=== PATIENT | female | born 2005 | race Caucasian/White ===

== ENCOUNTER 2024-10-25 14:52 | Observation (INO) ==
[2024-10-25 15:32] LABS: Basophils # (auto) 0.03 K/uL (0.00-0.20); Basophils % (auto) 0.3 %; Eosinophils # (auto) 0.06 K/uL (0.00-0.50); Eosinophils % (auto) 0.6 %; Hematocrit (blood only) 38.2 % (37.0-47.0); Hemoglobin 13.5 g/dl (12.0-16.0); Immature Granulocytes # (auto) 0.04 K/uL (0.01-0.20); Immature Granulocytes % (auto) 0.4 %; Lymphocytes # (auto) 1.58 K/uL (1.20-3.40); Mean Corpuscular Hemoglobin 31.2 pg (25.0-34.0); Mean Corpuscular Hgb Conc 35.3 g/dL (32.0-36.0); Mean Corpuscular Volume 88.2 fL (80.0-100.0); Mean Platelet Volume 9.9 fL (9.4-12.4); Monocytes # (auto) 0.59 K/uL (0.11-0.59); Monocytes % (auto) 5.6 %; Neutrophils # (auto) 8.23 K/uL (1.40-6.50); Neutrophils % (auto) 78.1 %; Platelet Count 180 K/uL (130-400); RDW Coefficient of Variation 12.1 % (11.5-14.5); RDW Standard Deviation 38.7 fL (36.4-46.3); Red Blood Count 4.33 M/uL (4.20-5.40); White Blood Count 10.53 K/ul (4.8-10.8)
[2024-10-25 15:46] LABS: Pregnancy Test, Serum Negative (Negative)
[2024-10-25 15:52] LABS: Albumin Globulin Ratio 1.6 (0.9-2); Albumin Level 4.4 gm/dl (3.4-5.0); BUN Creatinine Ratio 20.9 (10-20); Bilirubin,Total 0.7 mg/dl (0.2-1.0); Calcium 9.5 mg/dl (8.6-10.3); Creatinine Clr Calc Pharmacy 129.6 ml/min; Globulin 2.8 gm/dl (2.5-4.0); Total Protein 7.2 gm/dl (6.0-8.3)
[2024-10-25] MEDS: SODIUM CHLORIDE 0.9% 1,000 ML IV ONE (16:34)
[2024-10-25] MEDS: FAMOTIDINE 20MG IV PUSH 20 MG/5 ML SYR IV STA (16:34)
[2024-10-25] MEDS: ALUMINUM/MAGNESIUM SUSP 30 ML UDC PO STA (16:34)
--- NOTE | 2024-10-25 16:36 | Emergency Department Note ---
History of Present Illness General Chief complaint: Abdominal Pain Stated complaint: AB PAIN Time Seen by Provider: 10/25/24 16:08 History of Present Illness Maximum Pain Intensity: 5 This is a 19-year-old female that presents to the emergency department via EMS with complaints of "abdominal pain". The patient notes that earlier today about 1 hour following consumption of eggs and jorge she began with intense lower abdominal discomfort that was overall generalized in nature. It is not localized to 1 side over the other. She denies any history of similar but does note that initially pain was more like "period cramps". But then notes the pain intensified. She began vomiting. EMS summoned and she was brought here. Current pain 03/27. She denies any blood in the vomit or stool. She notes she is otherwise healthy. No pertinent past medical history, surgeries or allergies. No sore throat. No chest pain or shortness of breath. No headache. No neck pain. No back pain at the present time. Did have back pain earlier but that resolved. Home Medications Medication Instructions Recorded Confirmed Type bupropion HCl 150 mg 24 hr tablet, 40 mg PO DAILY 10/26/24 10/26/24 History extended release lisdexamfetamine 40 mg capsule 40 mg PO DAILY 10/26/24 10/26/24 History Allergies Allergy/AdvReac Type Severity Reaction Status Date / Time No Known Allergies Allergy Unverified 10/26/24 01:23 Past Med/Surg History Problem List (Updated 10/26/24 @ 01:55 by Pete Holden PA-C) Nausea & vomiting (Acute) Abdominal pain (Acute) Ruptured cyst of left ovary (Acute) Osteochondral defect of ankle Social History Smoking Status: Current every day smoker Tobacco Type: E-cigarettes / Vaping Preferred Language: Turkish Feels Safe at Home: Yes Review of Systems A total of 10 systems reviewed and were otherwise negative Physical Exam Vital Signs Vital Signs - 24 hr 10/25/24 14:59 10/25/24 15:00 10/25/24 15:03 Temperature 36.7 C Temperature Source Oral Pulse Rate 94 H 99 H Pulse Rate [Apical] Pulse Rate from SpO2 Sensor Respiratory Rate 19 23 Respiratory Effort / Characteristics Non-Labored Respiratory Depth Normal Respiratory Pattern Blood Pressure 122/80 122/80 Blood Pressure [Left Arm] Blood Pressure [Right Arm] Blood Pressure Mean 94 90 Blood Pressure Mean [Left Arm] Blood Pressure Mean [Right Arm] Pulse Oximetry 100 100 Oxygen Delivery Method Room Air Sepsis Recent Fever Within 48 Hours No Sepsis New/Unexplained Change in Mental Status No Sepsis Action Taken by Nursing No Action Required 10/25/24 15:06 10/25/24 15:30 10/25/24 15:33 Temperature Temperature Source Pulse Rate 86 84 Pulse Rate [Apical] Pulse Rate from SpO2 Sensor 86 84 Respiratory Rate 17 14 Respiratory Effort / Characteristics Respiratory Depth Respiratory Pattern Blood Pressure 107/55 L Blood Pressure [Left Arm] Blood Pressure [Right Arm] Blood Pressure Mean 70 Blood Pressure Mean [Left Arm] Blood Pressure Mean [Right Arm] Pulse Oximetry 99 99 Oxygen Delivery Method Sepsis Recent Fever Within 48 Hours Sepsis New/Unexplained Change in Mental Status Sepsis Action Taken by Nursing 10/25/24 15:55 10/25/24 16:00 10/25/24 16:00 Temperature Temperature Source Pulse Rate 75 81 Pulse Rate [Apical] Pulse Rate from SpO2 Sensor Respiratory Rate 19 Respiratory Effort / Characteristics Respiratory Depth Respiratory Pattern Blood Pressure 107/56 L Blood Pressure [Left Arm] Blood Pressure [Right Arm] Blood Pressure Mean 67 Blood Pressure Mean [Left Arm] Blood Pressure Mean [Right Arm] Pulse Oximetry 97 Oxygen Delivery Method Sepsis Recent Fever Within 48 Hours Sepsis New/Unexplained Change in Mental Status Sepsis Action Taken by Nursing 10/25/24 16:27 10/25/24 16:42 10/25/24 16:51 Temperature Temperature Source Pulse Rate 96 H 94 H Pulse Rate [Apical] Pulse Rate from SpO2 Sensor Respiratory Rate 19 21 Respiratory Effort / Characteristics Respiratory Depth Respiratory Pattern Blood Pressure Blood Pressure [Left Arm] Blood Pressure [Right Arm] Blood Pressure Mean Blood Pressure Mean [Left Arm] Blood Pressure Mean [Right Arm] Pulse Oximetry 98 Oxygen Delivery Method Sepsis Recent Fever Within 48 Hours Sepsis New/Unexplained Change in Mental Status Sepsis Action Taken by Nursing 10/25/24 17:06 10/25/24 17:12 10/25/24 17:27 Temperature Temperature Source Pulse Rate 88 94 H 95 H Pulse Rate [Apical] Pulse Rate from SpO2 Sensor Respiratory Rate 17 16 16 Respiratory Effort / Characteristics Respiratory Depth Respiratory Pattern Blood Pressure Blood Pressure [Left Arm] Blood Pressure [Right Arm] Blood Pressure Mean Blood Pressure Mean [Left Arm] Blood Pressure Mean [Right Arm] Pulse Oximetry Oxygen Delivery Method Sepsis Recent Fever Within 48 Hours Sepsis New/Unexplained Change in Mental Status Sepsis Action Taken by Nursing 10/25/24 17:33 10/25/24 17:48 10/25/24 17:51 Temperature Temperature Source Pulse Rate 83 108 H 101 H Pulse Rate [Apical] Pulse Rate from SpO2 Sensor Respiratory Rate 18 17 21 Respiratory Effort / Characteristics Respiratory Depth Respiratory Pattern Blood Pressure Blood Pressure [Left Arm] Blood Pressure [Right Arm] Blood Pressure Mean Blood Pressure Mean [Left Arm] Blood Pressure Mean [Right Arm] Pulse Oximetry Oxygen Delivery Method Sepsis Recent Fever Within 48 Hours Sepsis New/Unexplained Change in Mental Status Sepsis Action Taken by Nursing 10/25/24 18:00 10/25/24 18:09 10/25/24 18:15 Temperature Temperature Source Pulse Rate 94 H 101 H Pulse Rate [Apical] 83 Pulse Rate from SpO2 Sensor Respiratory Rate 17 17 Respiratory Effort / Characteristics Respiratory Depth Respiratory Pattern Blood Pressure Blood Pressure [Left Arm] 115/58 L Blood Pressure [Right Arm] Blood Pressure Mean Blood Pressure Mean [Left Arm] 77 Blood Pressure Mean [Right Arm] Pulse Oximetry 97 Oxygen Delivery Method Room Air Sepsis Recent Fever Within 48 Hours Sepsis New/Unexplained Change in Mental Status Sepsis Action Taken by Nursing 10/25/24 19:20 10/25/24 19:29 10/25/24 19:46 Temperature Temperature Source Pulse Rate 96 H Pulse Rate [Apical] 82 91 H Pulse Rate from SpO2 Sensor Respiratory Rate 19 19 Respiratory Effort / Characteristics Respiratory Depth Respiratory Pattern Blood Pressure Blood Pressure [Left Arm] 119/60 Blood Pressure [Right Arm] Blood Pressure Mean Blood Pressure Mean [Left Arm] 79 Blood Pressure Mean [Right Arm] Pulse Oximetry 98 99 Oxygen Delivery Method Room Air Room Air Sepsis Recent Fever Within 48 Hours Sepsis New/Unexplained Change in Mental Status Sepsis Action Taken by Nursing 10/25/24 21:30 10/25/24 23:37 10/25/24 23:51 Temperature Temperature Source Pulse Rate 93 H Pulse Rate [Apical] 94 H 95 H Pulse Rate from SpO2 Sensor Respiratory Rate 14 14 Respiratory Effort / Characteristics Non-Labored Spontaneous Respiratory Depth Normal Respiratory Pattern Regular Blood Pressure Blood Pressure [Left Arm] 124/79 Blood Pressure [Right Arm] 114/58 L Blood Pressure Mean Blood Pressure Mean [Left Arm] 94 Blood Pressure Mean [Right Arm] 76 Pulse Oximetry 98 97 Oxygen Delivery Method Room Air Room Air Sepsis Recent Fever Within 48 Hours Sepsis New/Unexplained Change in Mental Status Sepsis Action Taken by Nursing 10/26/24 01:06 Temperature Temperature Source Pulse Rate Pulse Rate [Apical] 95 H Pulse Rate from SpO2 Sensor Respiratory Rate 18 Respiratory Effort / Characteristics Non-Labored Spontaneous Respiratory Depth Normal Respiratory Pattern Regular Blood Pressure Blood Pressure [Left Arm] Blood Pressure [Right Arm] 128/78 Blood Pressure Mean Blood Pressure Mean [Left Arm] Blood Pressure Mean [Right Arm] 94 Pulse Oximetry 100 Oxygen Delivery Method Room Air Sepsis Recent Fever Within 48 Hours Sepsis New/Unexplained Change in Mental Status Sepsis Action Taken by Nursing VITAL SIGNS - Vital signs and nursing notes were reviewed. Stable and afebrile. GENERAL - 19-year-old female appearing her stated age who is in no acute distress. Communicates well with provider and answers questions appropriately. SKIN - Without rashes. No meningeal or petechial rash. HEAD - NC/AT. EYES - PERRL with EOMI bilaterally. Sclera anicteric. EARS - No deformities of external structures noted on gross examination bilaterally. No pain elicited with palpation of the tragus bilaterally. External auditory canals without discharge or otorrhea. Tympanic membranes pearly smith without retraction or bulging. No fluid or purulent material visualized behind the TM. Handle of malleus, umbo, cone of light, pars tensa/flaccid all easily visualized. NOSE - Midline and without cyanosis. MOUTH/OROPHARYNX - Without perioral cyanosis. Buccal mucosa pink and moist and without leukoplakia. Tongue midline with equal elevation of palate bilaterally. No tonsillar hypertrophy, erythema, or exudates noted. Good dentition noted. NECK - Neck with FROM. No nuchal rigidity. LUNGS - Chest wall symmetric without accessory muscle use, intercostals retractions, or central cyanosis. Normal vesicular breath sounds CTA B/L. No wheezes, rales, or rhonchi appreciated. CARDIAC - RRR ABDOMEN - Abdominal contour normal without pulsations or visible masses. BS normoactive all four quadrants. Tenderness just superior to the umbilicus. No guarding or rigidity. No palpable masses, hepatosplenomegaly, or ascites noted. EXTREMITIES - No clubbing or peripheral cyanosis. PSYCH -alert, oriented and pleasant on exam. Course Administered Medications Discontinued Medications Acetaminophen (Acetaminophen 500 Mg Tab) 500 mg PO NOW STA Stop: 10/26/24 00:46 Last Admin: 10/26/24 01:08 Dose: 500 mg Documented By: EMB Al Hydrox/Mg Hydrox/Simethicone (Aluminum/Magnesium Susp 30 Ml Udc) 15 ml PO NOW STA Stop: 10/25/24 16:18 Last Admin: 10/25/24 16:34 Dose: 15 ml Documented By: STEPHANIE Hydromorphone HCl (Hydromorphone Inj 0.5 Mg/0.5 Ml Syr) 0.5 mg IV NOW STA Stop: 10/26/24 01:09 Last Admin: 10/26/24 01:25 Dose: 0.5 mg Documented By: XIOMARA Famotidine (Pepcid 20mg Iv Push) 20 mg in 5 mls @ 2.5 mls/min IV NOW STA Stop: 10/25/24 16:18 Last Admin: 10/25/24 16:34 Dose: 2.5 mls/min Documented By: STEPHANIE Sodium Chloride (Nss) 1,000 mls @ 999 mls/hr IV .Q1H1M ONE Stop: 10/25/24 17:18 Last Infusion: 10/25/24 17:38 Dose: Infused Documented By: Admin: 10/25/24 16:34 Dose: 999 mls/hr Documented By: STEPHANIE Ioversol (Optiray 320 100ml) 94 ml IV ONCE ONE Stop: 10/25/24 19:40 Last Admin: 10/25/24 19:39 Dose: 94 ml Documented By: DORA Ketorolac Tromethamine (Ketorolac Tromethamine 15 Mg/Ml Vial) 10 mg IV NOW ONE Stop: 10/25/24 17:48 Last Admin: 10/25/24 17:56 Dose: 10 mg Documented By: ROSY Morphine Sulfate (Morphine Sulfate 2 Mg/Ml Carp) 2 mg IV NOW STA Stop: 10/25/24 23:58 Last Admin: 10/26/24 00:07 Dose: 2 mg Documented By: XIOMARA Ondansetron HCl (Ondansetron Inj 2 Mg/Ml 2 Ml Vial) 4 mg IV NOW STA Stop: 10/25/24 17:48 Last Admin: 10/25/24 17:56 Dose: 4 mg Documented By: ROSY Medical Decision Making Laboratory Data 10/26/24 00:24 10/25/24 15:03 Lab Results 10/25/24 10/25/24 10/26/24 Range/Units 15:03 16:33 00:24 WBC 10.53 (4.8-10.8) K/ul RBC 4.33 (4.20-5.40) M/uL Hgb 13.5 11.9 L (12.0-16.0) g/dl Hct 38.2 (37.0-47.0) % MCV 88.2 (80.0-100.0) fL MCH 31.2 (25.0-34.0) pg MCHC 35.3 (32.0-36.0) g/dL RDW Std Deviation 38.7 (36.4-46.3) fL RDW Coeff of Jackie 12.1 (11.5-14.5) % Plt Count 180 (130-400) K/uL MPV 9.9 (9.4-12.4) fL Immature Gran % (Auto) 0.4 % Neut % (Auto) 78.1 % Lymph % (Auto) 15.0 % Garrard % (Auto) 5.6 % Eos % (Auto) 0.6 % Baso % (Auto) 0.3 % Neut # (Auto) 8.23 H (1.40-6.50) K/uL Lymph # (Auto) 1.58 (1.20-3.40) K/uL Garrard # (Auto) 0.59 (0.11-0.59) K/uL Eos # (Auto) 0.06 (0.00-0.50) K/uL Baso # (Auto) 0.03 (0.00-0.20) K/uL Immature Gran # (Auto) 0.04 (0.01-0.20) K/uL Sodium 139 (136-145) mmol/L Potassium 4.0 (3.5-5.1) mmol/L Chloride 104 (98-107) mmol/L Carbon Dioxide 28 (21-32) mmol/L Anion Gap 7 (3-11) BUN 14 (6-23) mg/dl Creatinine 0.67 (0.6-1.2) mg/dl Est Cr Clr Drug Dosing 129.6 ml/min eGFR 128.24 BUN/Creatinine Ratio 20.9 H (10-20) Glucose 105 H (70-99(Fasting)) mg/dl Calcium 9.5 (8.6-10.3) mg/dl Total Bilirubin 0.7 (0.2-1.0) mg/dl AST 13 (13-39) U/L ALT 10 (7-52) U/L Alkaline Phosphatase 48 (34-104) U/L Total Protein 7.2 (6.0-8.3) gm/dl Albumin 4.4 (3.4-5.0) gm/dl Globulin 2.8 (2.5-4.0) gm/dl Albumin/Globulin Ratio 1.6 (0.9-2) Lipase 11 (11-82) U/L HCG, Qual Negative (Negative) Urine Color Yellow Urine Appearance Cloudy A (Clear) Urine pH 7.0 (4.5-7.5) Ur Specific [place] 1.022 (1.000-1.030) Urine Protein Negative (Negative) Urine Glucose (UA) Negative (Negative) Urine Ketones Negative (Negative) Urine Blood Negative (Negative) Urine Nitrite Negative (Negative) Urine Bilirubin Negative (Negative) Urine Urobilinogen Negative (Negative) Ur Leukocyte Esterase Negative (Negative) Urine WBC (Auto) 0-5 (0-5) /hpf Urine RBC (Auto) 0-2 (0-2) /hpf U Hyaline Cast (Auto) 0-2 (0-2) /lpf U Epithel Cells (Auto) 3-5 H (0-2) /hpf Urine Bacteria (Auto) None Seen (None Seen) Imaging Data Radiologist's Impression: Abdomen/Pelvis CT 10/25/24 16:18 Exam(s): CT ABDOMEN + PELVIS With Contrast IV Amt: 94 ml optiray 320 EXAM: CT Abdomen and Pelvis With Intravenous Contrast CLINICAL HISTORY: Reason for exam: Generalized abd pain, nausea, vomiting. TECHNIQUE: Axial computed tomography images of the abdomen and pelvis with intravenous contrast. CTDI is 8.28 mGy and DLP is 365.95 mGy-cm. Automated exposure control was utilized for the study. A dose lowering technique was utilized adhering to the principles of ALARA. CONTRAST: Patient received 94 ml optiray 320 of IV contrast COMPARISON: No relevant prior studies available. FINDINGS: Lung bases: Unremarkable. No mass. No consolidation. ABDOMEN: Liver: Unremarkable. No mass. Gallbladder and bile ducts: Unremarkable. No calcified stones. No ductal dilation. Pancreas: Unremarkable. No mass. No ductal dilation. Spleen: Unremarkable. No splenomegaly. Adrenals: Unremarkable. No mass. Kidneys and ureters: Unremarkable. No solid mass. No hydronephrosis. Stomach and bowel: Unremarkable. No obstruction. No mucosal thickening. PELVIS: Appendix: Bowel loops are nondilated. Oral contrast has reached the distal ileum but has not yet reached the cecum. The appendix is normal. No acute inflammatory changes are seen involving the bowel. Bladder: Unremarkable. No mass. Reproductive: There is a tampon in the vagina. ABDOMEN and PELVIS: Intraperitoneal space: Multilocular 4.4 cm cystic abnormality in the left adnexa. There is a small amount of free fluid in the cul-de-sac. No free air. Bones/joints: No acute fracture. No dislocation. Soft tissues: Unremarkable. Vasculature: Unremarkable. No abdominal aortic aneurysm. Lymph nodes: Unremarkable. No enlarged lymph nodes. IMPRESSION: 1. Multilocular 4.4 cm cystic abnormality in the left adnexa. There is a small amount of free fluid in the cul-de-sac. Consider complex left ovarian cyst. 2. Bowel loops are nondilated. Oral contrast has reached the distal ileum but has not yet reached the cecum. The appendix is normal. No acute inflammatory changes are seen involving the bowel. Electronically signed by: Paramjit Eli MD 10/25/24 21:48 PM Pelvis Ultrasound 10/25/24 21:58 Exam(s): US PELVIS EXAM: US Pelvis Transabdominal, Complete CLINICAL HISTORY: Reason for exam: Cyst in lower pelvis, pain. TECHNIQUE: Real-time complete transabdominal pelvic ultrasound with image documentation. COMPARISON: CT scan from October 25, 2024 FINDINGS: Uterus/cervix: The uterus measures 7.4 x 4.8 x 4.4 cm and is anteverted. The myometrium is unremarkable. The endometrial stripe is slightly thickened measuring 1.3 cm. Right ovary: The right ovary measures 3.3 x 2.6 x 2.3 cm with normal Doppler blood flow. Left ovary: The left ovary measures 5.3 x 2.7 x 4.3 cm. Doppler blood flow is normal. There are complex cysts measuring 3.1 x 2 x 2.6 cm and 2. 4 x 2.3 x 2.2 cm. Free fluid: Trace amount of free fluid adjacent to the left ovary. IMPRESSION: Complex left ovarian cysts as described above. Trace amount of free fluid adjacent to the left ovary. Consider ruptured ovarian cyst. Electronically signed by: Paramjit Eli MD 10/25/24 23:55 PM MDM Narrative Patient was seen and evaluated as above in room C02. Review was performed of triage nursing notes and vital signs. After obtaining a thorough history and physical examination the above work up was performed. Patient presents to us today for evaluation of abdominal discomfort with associated vomiting. Patient on assessment is clinically well-appearing and nontoxic. There is reproducible generalized periumbilical abdominal tenderness. Pain began about 1 hour after consumption of food. IV access was already established as the patient did arrive via EMS. Labs were drawn. No leukocytosis or concerning anemia. No emergent metabolic disturbance. Mild hyperglycemia 105. Urinalysis does not suggest infection. test is negative. Lipase normal. The patient initially was medicated with IV fluids, IV Pepcid and a GI cocktail. She was reevaluated with minimal improvement. We had discussed benefit versus risk of CT scan of the abdomen/pelvis with IV and oral contrast. Through shared medical decision making with the patient we elected to proceed. The patient did have some trouble tolerating the oral contrast noting vomiting therefore patient was administered IV Zofran for the nausea/vomiting and with the continuation of pain IV Toradol was also administered. It was felt that the benefit outweighed risk. We will still proceed with a CT scan but hold off on further oral prep. CT scan as above. Multilocular 4.4 cm cyst noted. Ultrasound was then obtained. This does show a complex left ovarian cyst. I do suspect this is a ruptured cyst. I then discussed this with Dr. Evans of gynecology. We discussed pain control. Patient may require hospitalization if the pain is not controlled however if the pain is better controlled then discharge may be possible. Patient while here was further medicated with IV morphine. She continued to note worsening symptoms. I did order repeat hemoglobin which was slightly decreased at 11.9. At this time, noting progression and worsening of symptoms despite workup and medication as above, hospitalization was considered. I discussed this with the hospitalist service. Please refer to further documentation regarding her stay. GCS: 15 In the evaluation and treatment of this patient the following differential diagnoses were entertained: Ovarian torsion, ovarian cyst, appendicitis, diverticulitis, perforation, UTI, pyelonephritis, kidney stone, among others Impression & Plan Ruptured cyst of left ovary, Abdominal pain, Nausea & vomiting Discharge Plan Visit Data Chief Complaint: Abdominal Pain Stated Complaint: AB PAIN ED Provider: Ferny Chand ED Midlevel Provider: Pete Holden Discharge Problem: Ruptured cyst of left ovary, Abdominal pain, Nausea & vomiting Patient Disposition: Admitted As Inpatient Condition: Good Forms Stand Alone Forms: My [facility] Prescriptions Prescriptions: No Action bupropion HCl 150 mg tablet extended release 24 hr 40 mg PO DAILY lisdexamfetamine 40 mg capsule 40 mg PO DAILY Referrals Referrals: [facility] [Primary Care Provider] -
[2024-10-25 16:52] LABS: Appearance Urine Cloudy (Clear); Bacteria Urine Automated None Seen (None Seen); Bilirubin Urine Negative (Negative); Blood Urine Negative (Negative); Cast Urine Automated 0-2 /lpf (0-2); Color Urine Yellow; Glucose Urine UA Negative (Negative); Ketones Urine Negative (Negative); Leukocyte Esterase Urine Negative (Negative); Nitrite Urine Negative (Negative); Protein Urine Negative (Negative); RBC Urine Automated 0-2 /hpf (0-2); Specific Gravity Urine 1.022 (1.000-1.030); Urobilinogen Urine Negative (Negative); WBC Urine Automated 0-5 /hpf (0-5)
[2024-10-25] MEDS: KETOROLAC TROMETHAMINE 15 MG/ML VIAL IV ONE (17:56)
[2024-10-25] MEDS: ONDANSETRON INJ 2 MG/ML 2 ML VIAL IV STA (17:56)
[2024-10-25] MEDS: OPTIRAY 320 100ml IV ONE (19:39)
--- NOTE | 2024-10-25 21:49 | CT Scan Report ---
Exam(s): CT ABDOMEN + PELVIS With Contrast IV Amt: 94 ml optiray 320 EXAM: CT Abdomen and Pelvis With Intravenous Contrast CLINICAL HISTORY: Reason for exam: Generalized abd pain, nausea, vomiting. TECHNIQUE: Axial computed tomography images of the abdomen and pelvis with intravenous contrast. CTDI is 8.28 mGy and DLP is 365.95 mGy-cm. Automated exposure control was utilized for the study. A dose lowering technique was utilized adhering to the principles of ALARA. CONTRAST: Patient received 94 ml optiray 320 of IV contrast COMPARISON: No relevant prior studies available. FINDINGS: Lung bases: Unremarkable. No mass. No consolidation. ABDOMEN: Liver: Unremarkable. No mass. Gallbladder and bile ducts: Unremarkable. No calcified stones. No ductal dilation. Pancreas: Unremarkable. No mass. No ductal dilation. Spleen: Unremarkable. No splenomegaly. Adrenals: Unremarkable. No mass. Kidneys and ureters: Unremarkable. No solid mass. No hydronephrosis. Stomach and bowel: Unremarkable. No obstruction. No mucosal thickening. PELVIS: Appendix: Bowel loops are nondilated. Oral contrast has reached the distal ileum but has not yet reached the cecum. The appendix is normal. No acute inflammatory changes are seen involving the bowel. Bladder: Unremarkable. No mass. Reproductive: There is a tampon in the vagina. ABDOMEN and PELVIS: Intraperitoneal space: Multilocular 4.4 cm cystic abnormality in the left adnexa. There is a small amount of free fluid in the cul-de-sac. No free air. Bones/joints: No acute fracture. No dislocation. Soft tissues: Unremarkable. Vasculature: Unremarkable. No abdominal aortic aneurysm. Lymph nodes: Unremarkable. No enlarged lymph nodes. IMPRESSION: 1. Multilocular 4.4 cm cystic abnormality in the left adnexa. There is a small amount of free fluid in the cul-de-sac. Consider complex left ovarian cyst. 2. Bowel loops are nondilated. Oral contrast has reached the distal ileum but has not yet reached the cecum. The appendix is normal. No acute inflammatory changes are seen involving the bowel. Electronically signed by: Paramjit Eli MD 10/25/24 21:48 PM
--- NOTE | 2024-10-25 23:56 | Ultrasound Report ---
Exam(s): US PELVIS EXAM: US Pelvis Transabdominal, Complete CLINICAL HISTORY: Reason for exam: Cyst in lower pelvis, pain. TECHNIQUE: Real-time complete transabdominal pelvic ultrasound with image documentation. COMPARISON: CT scan from October 25, 2024 FINDINGS: Uterus/cervix: The uterus measures 7.4 x 4.8 x 4.4 cm and is anteverted. The myometrium is unremarkable. The endometrial stripe is slightly thickened measuring 1.3 cm. Right ovary: The right ovary measures 3.3 x 2.6 x 2.3 cm with normal Doppler blood flow. Left ovary: The left ovary measures 5.3 x 2.7 x 4.3 cm. Doppler blood flow is normal. There are complex cysts measuring 3.1 x 2 x 2.6 cm and 2. 4 x 2.3 x 2.2 cm. Free fluid: Trace amount of free fluid adjacent to the left ovary. IMPRESSION: Complex left ovarian cysts as described above. Trace amount of free fluid adjacent to the left ovary. Consider ruptured ovarian cyst. Electronically signed by: Paramjit Eli MD 10/25/24 23:55 PM
[2024-10-26] MEDS: MoRPHine SULFATE 2 MG/ML CARP IV STA (00:07)
--- NOTE | 2024-10-26 00:55 | History & Physical Report ---
Date of Service October 26, 2024 Assessment & Plan (1) Ruptured cyst of left ovary: Plan: -CT showed Multilocular 4.4 cm cystic abnormality in the left adnexa. There is a small amount of free fluid in the cul-de-sac. Consider complex left ovarian cyst. -Initially treated with Toradol which did not help much and morphine which helped though made her nauseous. -On reexamination in the ED a pelvic ultrasound was conducted and a complex left ovarian cyst was seen with trace amount of free fluid adjacent to the left ovary with concern for ruptured ovarian cyst. -CBC benign, CMP benign, test negative, UA grossly negative. -Gave 1 dose of Dilaudid at time of admission for pain. -At time of admission H&H was taken and showed a decrease from 13.5 to 11.9. -CBC in the a.m. -Zofran as needed for nausea, Toradol and Tylenol as needed for pain. -Will keep n.p.o. at this time and consult FURNACE COMBUSTION ANALYST. Appreciate recommendation. Plan Fluids: None Nutrition: N.p.o. Code status: Full code DVT ppx: Low risk, may consider if prolonged static Consults: Gynecology Dispo: med/surg History of Present Illness Chief Complaint: Ovarian cyst Primary Care Provider: [facility] Patient is a 19-year-old female with no significant past medical history who presents to the hospital with abdominal pain, emesis, and nausea. Patient is from [place] and is here for school. Pain started earlier today after eating eggs and jorge. Patient states that it is diffuse abdominal pain and not located on 1 side though when pressing on it is slightly tender on the left side. Denies ever having issues like this before. States that she thought it was her period cramps. States that her period is regular. She received Toradol in the ED which did not help much. She did receive some morphine which helped slightly but made her nauseous. Denies any cough, fever, chills, shortness of breath, headache, neck pain, or back pain. Allergies Allergy/AdvReac Type Severity Reaction Status Date / Time No Known Allergies Allergy Unverified 10/26/24 01:23 Home Medications Medication Instructions Recorded Confirmed Type bupropion HCl 150 mg 24 hr tablet, 40 mg PO DAILY 10/26/24 10/26/24 History extended release lisdexamfetamine 40 mg capsule 40 mg PO DAILY 10/26/24 10/26/24 History Past Med/Surg History Problem List Nausea & vomiting (Acute) Abdominal pain (Acute) Ruptured cyst of left ovary (Acute) Osteochondral defect of ankle Social History Smoking Status: Current every day smoker Tobacco Type: E-cigarettes / Vaping Second Hand Exposure: No; Do You Dip or Chew Tobacco: No; Tobacco Cessation Education Requested by Patient: No Hx Alcohol Use: Yes Alcohol type: beer and hard liquor Hx Substance Use: Yes Last Used Substance: Days (ago) Preferred Language: Greenlandic Communication Ability: Effective Continuous Improvement Engineer Required: No Beliefs That Will Affect Care: None Current Living Situation: Other Current Living Situation Comment: [employer] student Other Information That Helps Us Care for You: No Feels Safe at Home: Yes Safety Concerns: Feels Safe At This Time Assistive Devices: None Review of Systems Review of Systems: All systems reviewed & are unremarkable except as noted in Subjective Physical Exam Physical Exam: Constitutional: well-appearing, no acute distress HEENT: NCAT, no conjunctival injection CV: regular rhythm, no murmur appreciated, extremities well-perfused, no LE edema Resp: CTABL, no wheezes/rales/rhonchi appreciated, no increased work of breathing GI: soft, nondistended, diffuse abdominal tenderness left> right, significant left adnexa tenderness, BS normoactive MSK: no gross deformities appreciated Skin: warm, dry, no rash appreciated Neuro: alert, oriented, no focal neurologic deficit appreciated Results & Data Results & Data Vital Signs (Past 12 Hours) Vital Signs Temp Pulse Pulse Resp BP BP BP 10/25/24 23:51 95 H 14 114/58 L 10/25/24 23:37 93 H 10/25/24 21:30 94 H 14 124/79 10/25/24 19:46 96 H 10/25/24 19:29 91 H 19 119/60 10/25/24 19:20 82 19 10/25/24 18:15 101 H 17 10/25/24 18:09 94 H 17 10/25/24 18:00 83 115/58 L 10/25/24 17:51 101 H 21 10/25/24 17:48 108 H 17 10/25/24 17:33 83 18 10/25/24 17:27 95 H 16 10/25/24 17:12 94 H 16 10/25/24 17:06 88 17 10/25/24 16:51 94 H 21 10/25/24 16:42 96 H 19 10/25/24 16:27 10/25/24 16:00 81 19 10/25/24 16:00 107/56 L 10/25/24 15:55 75 10/25/24 15:33 84 14 10/25/24 15:30 107/55 L 10/25/24 15:06 86 17 10/25/24 15:03 99 H 23 10/25/24 15:00 122/80 10/25/24 14:59 36.7 C 94 H 19 122/80 Pulse Ox O2 Del Method 10/25/24 23:51 97 Room Air 10/25/24 23:37 10/25/24 21:30 98 Room Air 10/25/24 19:46 10/25/24 19:29 99 Room Air 10/25/24 19:20 98 Room Air 10/25/24 18:15 10/25/24 18:09 10/25/24 18:00 97 Room Air 10/25/24 17:51 10/25/24 17:48 10/25/24 17:33 10/25/24 17:27 10/25/24 17:12 10/25/24 17:06 10/25/24 16:51 10/25/24 16:42 10/25/24 16:27 98 10/25/24 16:00 97 10/25/24 16:00 10/25/24 15:55 10/25/24 15:33 99 10/25/24 15:30 10/25/24 15:06 99 10/25/24 15:03 100 10/25/24 15:00 10/25/24 14:59 100 Room Air Laboratory Results Laboratory Results WBC 10.53 K/ul (4.8-10.8) 10/25/24 15:03 RBC 4.33 M/uL (4.20-5.40) 10/25/24 15:03 Hgb 11.9 g/dl (12.0-16.0) L 10/26/24 00:24 Hct 38.2 % (37.0-47.0) 10/25/24 15:03 MCV 88.2 fL (80.0-100.0) 10/25/24 15:03 MCH 31.2 pg (25.0-34.0) 10/25/24 15:03 MCHC 35.3 g/dL (32.0-36.0) 10/25/24 15:03 RDW Std Deviation 38.7 fL (36.4-46.3) 10/25/24 15:03 RDW Coeff of Jackie 12.1 % (11.5-14.5) 10/25/24 15:03 Plt Count 180 K/uL (130-400) 10/25/24 15:03 MPV 9.9 fL (9.4-12.4) 10/25/24 15:03 Immature Gran % (Auto) 0.4 % 10/25/24 15:03 Neut % (Auto) 78.1 % 10/25/24 15:03 Lymph % (Auto) 15.0 % 10/25/24 15:03 [place] % (Auto) 5.6 % 10/25/24 15:03 Eos % (Auto) 0.6 % 10/25/24 15:03 Baso % (Auto) 0.3 % 10/25/24 15:03 Neut # (Auto) 8.23 K/uL (1.40-6.50) H 10/25/24 15:03 Lymph # (Auto) 1.58 K/uL (1.20-3.40) 10/25/24 15:03 [place] # (Auto) 0.59 K/uL (0.11-0.59) 10/25/24 15:03 Eos # (Auto) 0.06 K/uL (0.00-0.50) 10/25/24 15:03 Baso # (Auto) 0.03 K/uL (0.00-0.20) 10/25/24 15:03 Immature Gran # (Auto) 0.04 K/uL (0.01-0.20) 10/25/24 15:03 Sodium 139 mmol/L (136-145) 10/25/24 15:03 Potassium 4.0 mmol/L (3.5-5.1) 10/25/24 15:03 Chloride 104 mmol/L (98-107) 10/25/24 15:03 Carbon Dioxide 28 mmol/L (21-32) 10/25/24 15:03 Anion Gap 7 (3-11) 10/25/24 15:03 BUN 14 mg/dl (6-23) 10/25/24 15:03 Creatinine 0.67 mg/dl (0.6-1.2) 10/25/24 15:03 Est Cr Clr Drug Dosing 129.6 ml/min 10/25/24 15:03 eGFR 128.24 10/25/24 15:03 BUN/Creatinine Ratio 20.9 (10-20) H 10/25/24 15:03 Glucose 105 mg/dl (70-99(Fasting)) H 10/25/24 15:03 Calcium 9.5 mg/dl (8.6-10.3) 10/25/24 15:03 Total Bilirubin 0.7 mg/dl (0.2-1.0) 10/25/24 15:03 AST 13 U/L (13-39) 10/25/24 15:03 ALT 10 U/L (7-52) 10/25/24 15:03 Alkaline Phosphatase 48 U/L (34-104) 10/25/24 15:03 Total Protein 7.2 gm/dl (6.0-8.3) 10/25/24 15:03 Albumin 4.4 gm/dl (3.4-5.0) 10/25/24 15:03 Globulin 2.8 gm/dl (2.5-4.0) 10/25/24 15:03 Albumin/Globulin Ratio 1.6 (0.9-2) 10/25/24 15:03 Lipase 11 U/L (11-82) 10/25/24 15:03 HCG, Qual Negative (Negative) 10/25/24 15:03 Urine Color Yellow 10/25/24 16:33 Urine Appearance Cloudy (Clear) A 10/25/24 16:33 Urine pH 7.0 (4.5-7.5) 10/25/24 16:33 Ur Specific [place] 1.022 (1.000-1.030) 10/25/24 16:33 Urine Protein Negative (Negative) 10/25/24 16:33 Urine Glucose (UA) Negative (Negative) 10/25/24 16:33 Urine Ketones Negative (Negative) 10/25/24 16:33 Urine Blood Negative (Negative) 10/25/24 16:33 Urine Nitrite Negative (Negative) 10/25/24 16:33 Urine Bilirubin Negative (Negative) 10/25/24 16:33 Urine Urobilinogen Negative (Negative) 10/25/24 16:33 Ur Leukocyte Esterase Negative (Negative) 10/25/24 16:33 Urine WBC (Auto) 0-5 /hpf (0-5) 10/25/24 16:33 Urine RBC (Auto) 0-2 /hpf (0-2) 10/25/24 16:33 U Hyaline Cast (Auto) 0-2 /lpf (0-2) 10/25/24 16:33 U Epithel Cells (Auto) 3-5 /hpf (0-2) H 10/25/24 16:33 Urine Bacteria (Auto) None Seen (None Seen) 10/25/24 16:33 Impressions Abdomen/Pelvis CT 10/25/24 16:18 Exam(s): CT ABDOMEN + PELVIS With Contrast IV Amt: 94 ml optiray 320 EXAM: CT Abdomen and Pelvis With Intravenous Contrast CLINICAL HISTORY: Reason for exam: Generalized abd pain, nausea, vomiting. TECHNIQUE: Axial computed tomography images of the abdomen and pelvis with intravenous contrast. CTDI is 8.28 mGy and DLP is 365.95 mGy-cm. Automated exposure control was utilized for the study. A dose lowering technique was utilized adhering to the principles of ALARA. CONTRAST: Patient received 94 ml optiray 320 of IV contrast COMPARISON: No relevant prior studies available. FINDINGS: Lung bases: Unremarkable. No mass. No consolidation. ABDOMEN: Liver: Unremarkable. No mass. Gallbladder and bile ducts: Unremarkable. No calcified stones. No ductal dilation. Pancreas: Unremarkable. No mass. No ductal dilation. Spleen: Unremarkable. No splenomegaly. Adrenals: Unremarkable. No mass. Kidneys and ureters: Unremarkable. No solid mass. No hydronephrosis. Stomach and bowel: Unremarkable. No obstruction. No mucosal thickening. PELVIS: Appendix: Bowel loops are nondilated. Oral contrast has reached the distal ileum but has not yet reached the cecum. The appendix is normal. No acute inflammatory changes are seen involving the bowel. Bladder: Unremarkable. No mass. Reproductive: There is a tampon in the vagina. ABDOMEN and PELVIS: Intraperitoneal space: Multilocular 4.4 cm cystic abnormality in the left adnexa. There is a small amount of free fluid in the cul-de-sac. No free air. Bones/joints: No acute fracture. No dislocation. Soft tissues: Unremarkable. Vasculature: Unremarkable. No abdominal aortic aneurysm. Lymph nodes: Unremarkable. No enlarged lymph nodes. IMPRESSION: 1. Multilocular 4.4 cm cystic abnormality in the left adnexa. There is a small amount of free fluid in the cul-de-sac. Consider complex left ovarian cyst. 2. Bowel loops are nondilated. Oral contrast has reached the distal ileum but has not yet reached the cecum. The appendix is normal. No acute inflammatory changes are seen involving the bowel. Electronically signed by: Paramjit Eli MD 10/25/24 21:48 PM Pelvis Ultrasound 10/25/24 21:58 Exam(s): US PELVIS EXAM: US Pelvis Transabdominal, Complete CLINICAL HISTORY: Reason for exam: Cyst in lower pelvis, pain. TECHNIQUE: Real-time complete transabdominal pelvic ultrasound with image documentation. COMPARISON: CT scan from October 25, 2024 FINDINGS: Uterus/cervix: The uterus measures 7.4 x 4.8 x 4.4 cm and is anteverted. The myometrium is unremarkable. The endometrial stripe is slightly thickened measuring 1.3 cm. Right ovary: The right ovary measures 3.3 x 2.6 x 2.3 cm with normal Doppler blood flow. Left ovary: The left ovary measures 5.3 x 2.7 x 4.3 cm. Doppler blood flow is normal. There are complex cysts measuring 3.1 x 2 x 2.6 cm and 2. 4 x 2.3 x 2.2 cm. Free fluid: Trace amount of free fluid adjacent to the left ovary. IMPRESSION: Complex left ovarian cysts as described above. Trace amount of free fluid adjacent to the left ovary. Consider ruptured ovarian cyst. Electronically signed by: Paramjit Eli MD 10/25/24 23:55 PM Supervising Physician Co-Signing Physician Notes patient seen and examined, chart reviewed, case discussed with Dr. Martinez and I agree with the assessment plan as documented above. In brief, patient is a 20-year-old female presenting with abdominal pain secondary to a complex hemorrhagic ovarian cyst. Being admitted for pain control time and continued monitoring. On exam patient is resting comfortably, no acute distress Skin without rash HEENT with moist mucous membranes, supple neck Heart + S1, S2, regular Lungs/CTA Abdomen with some lower abdominal discomfort, with no rebound, guarding or peritonitis Labs and images reviewed. Of note, she does have a decrease in her hemoglobin from 13.5-11.9. This is after receiving IV fluids Assessment/plan 19-year-old female presenting with abdominal pain secondary to complex hemorrhagic ovarian cyst Admit to medical Pain control with Toradol, Tylenol as needed Gynecology consultation appreciated Remainder as above Resident Activity Tracking Resident Involvement: Resident Care Provided Care Provided: Adult [facility] Medicine
[2024-10-26 01:08] VITALS: RESP 18
[2024-10-26] MEDS: ACETAMINOPHEN 500 MG TAB PO STA (01:08)
[2024-10-26] MEDS: HYDROmorphone INJ 0.5 MG/0.5 ML SYR IV STA (01:25)
[2024-10-26] MEDS ORDERED: ONDANSETRON INJ 2 MG/ML 2 ML VIAL IV PRN (02:19)
[2024-10-26] MEDS ORDERED: ACETAMINOPHEN 325 MG TAB PO PRN (02:19)
[2024-10-26] MEDS ORDERED: KETOROLAC 30 MG/ML VIAL IV PRN (02:19)
[2024-10-26] MEDS ORDERED: POLYETHYLENE (MIRALAX) 17 GM PACK PO PRN (02:19)
[2024-10-26] MEDS ORDERED: MELATONIN 3 MG TAB PO PRN (02:19)
[2024-10-26 02:30] VITALS: TEMP 98.8
--- NOTE | 2024-10-26 06:46 | OB/GYN Consultation ---
Date of Consultation October 26, 2024 Assessment & Plan (1) Ruptured cyst of left ovary: Reviewed her imaging in depth 2 small complex cyst on the left ovary suspect hemorrhagic cyst causing pain and irritation from the blood in the pelvis no indication for surgery at this time as the cysts are fairly small would suggest allowing her to eat today additionally switch to oral pain medication if possible Generally ovarian cyst the size will resolve without surgery I discussed that this is unlikely to require surgery although hard to be 100% sure some of this would depend on her clinical course as she stays here and as it is evolves. We reviewed that starting the control pill may be a good thing to do as an outpatient she has been on this before she only stopped because her eligibility and occupancy interviewer moved and so did she discussed as an outpatient we could do this. Discussed the natural history of ovarian cysts again suspect intervention unlikely should resolve in the next 24 hours and when pain improves would be good to discharge home 35 min tot face to face time History of Present Illness Attending Physician: Miguelina Eli DO History of Present Illness -CT showed Multilocular 4.4 cm cystic abnormality in the left adnexa. There is a small amount of free fluid in the cul-de-sac. Consider complex left ovarian cyst. -Initially treated with Toradol which did not help much and morphine which helped though made her nauseous. -On reexamination in the ED a pelvic ultrasound was conducted and a complex left ovarian cyst was seen with trace amount of free fluid adjacent to the left ovary with concern for ruptured ovarian cyst. -CBC benign, CMP benign, test negative, UA grossly negative. Patient reports is still having pain the pain came on suddenly and is constant it is somewhat better but not significantly better than yesterday she has had relief with Dilaudid Allergies Allergy/AdvReac Type Severity Reaction Status Date / Time No Known Allergies Allergy Unverified 10/26/24 01:23 Home Medications Medication Instructions Recorded Confirmed Type bupropion HCl 150 mg 24 hr tablet, 40 mg PO DAILY 10/26/24 10/26/24 History extended release lisdexamfetamine 40 mg capsule 40 mg PO DAILY 10/26/24 10/26/24 History Patient History Social History Smoking Status: Current every day smoker Tobacco Type: E-cigarettes / Vaping Second Hand Exposure: No; Do You Dip or Chew Tobacco: No; Tobacco Cessation Education Requested by Patient: No Hx Alcohol Use: Yes Alcohol type: beer and hard liquor Hx Substance Use: Yes Last Used Substance: Days (ago) Preferred Language: Kazakh Communication Ability: Effective Range Examiner Required: No Beliefs That Will Affect Care: None Current Living Situation: Other Current Living Situation Comment: [employer] student Other Information That Helps Us Care for You: No Feels Safe at Home: Yes Safety Concerns: Feels Safe At This Time Assistive Devices: None Physical Exam Constitutional: WD/WN, vitals as above well developed and well nourished Respiratory: normal respiratory effort, lungs clear to auscultation normal respiratory effort Cardiovascular: RRR, no murmur, no edema Gastrointestinal (Abdomen): normal bowel sounds, soft, nontender, no hepatosplenomegaly Results & Data Vital Signs (Past 12 Hours) Vital Signs Temp Pulse Pulse Resp BP BP BP 10/26/24 02:22 98.8 F 89 18 104/65 10/26/24 02:01 96 H 18 110/77 10/26/24 01:06 95 H 18 128/78 10/25/24 23:51 95 H 14 114/58 L 10/25/24 23:37 93 H 10/25/24 21:30 94 H 14 124/79 10/25/24 19:46 96 H 10/25/24 19:29 91 H 19 119/60 10/25/24 19:20 82 19 Pulse Ox O2 Del Method 10/26/24 02:22 98 Room Air 10/26/24 02:01 96 Room Air 10/26/24 01:06 100 Room Air 10/25/24 23:51 97 Room Air 10/25/24 23:37 10/25/24 21:30 98 Room Air 10/25/24 19:46 10/25/24 19:29 99 Room Air 10/25/24 19:20 98 Room Air PG Care Time/CCT Total # of Minutes Spent Total Time Spent with Patient: Total time spent is greater than 50% in coordination of care (as documented) at patient's floor/unit and/or counseling patient: Coding Level of Care Code 15451 IN/OBS CONSULT LVL 2,35M Diagnoses Ruptured cyst of left ovary N83.202
[2024-10-26 07:10] VITALS: O2SAT 95
[2024-10-26 08:32] LABS: Basophils # (auto) 0.03 K/uL (0.00-0.20); Basophils % (auto) 0.3 %; Eosinophils # (auto) 0.05 K/uL (0.00-0.50); Eosinophils % (auto) 0.5 %; Hematocrit (blood only) 33.9 % (37.0-47.0); Hemoglobin 12.3 g/dl (12.0-16.0); Immature Granulocytes # (auto) 0.03 K/uL (0.01-0.20); Immature Granulocytes % (auto) 0.3 %; Lymphocytes # (auto) 2.21 K/uL (1.20-3.40); Lymphocytes % (auto) 20.4 %; Mean Corpuscular Hemoglobin 31.7 pg (25.0-34.0); Mean Corpuscular Hgb Conc 36.3 g/dL (32.0-36.0); Mean Corpuscular Volume 87.4 fL (80.0-100.0); Mean Platelet Volume 10.2 fL (9.4-12.4); Monocytes # (auto) 0.79 K/uL (0.11-0.59); Monocytes % (auto) 7.3 %; Neutrophils % (auto) 71.2 %; Platelet Count 151 K/uL (130-400); RDW Coefficient of Variation 12.1 % (11.5-14.5); RDW Standard Deviation 38.5 fL (36.4-46.3); Red Blood Count 3.88 M/uL (4.20-5.40); White Blood Count 10.81 K/ul (4.8-10.8)
[2024-10-26 08:35] LABS: Albumin Globulin Ratio 1.5 (0.9-2); Albumin Level 3.8 gm/dl (3.4-5.0); BUN Creatinine Ratio 19.4 (10-20); Bilirubin,Total 1.1 mg/dl (0.2-1.0); Calcium 9.1 mg/dl (8.6-10.3); Creatinine Clr Calc Pharmacy 139.4 ml/min; Globulin 2.5 gm/dl (2.5-4.0); Potassium 3.7 mmol/L (3.5-5.1); Total Protein 6.3 gm/dl (6.0-8.3)
[2024-10-26] MEDS: KETOROLAC TROMETHAMINE 15 MG/ML VIAL IV PRN (12:00)
--- NOTE | 2024-10-26 12:52 | Hospitalist Progress Note ---
Date of Service October 26, 2024 Assessment & Plan (1) Ruptured cyst of left ovary: Plan: CT showed Multilocular 4.4 cm cystic abnormality in the left adnexa. There is a small amount of free fluid in the cul-de-sac. Consider complex left ovarian cyst. DEPUTY SHERIFF CHIEF consultation noted. No operative intervention necessary at this time. Pain control measures ordered. Supportive care. Plan Hopeful discharge to home tomorrow, October 27 Admission and Anticipated Discharge Date Admission Date: October 26, 2024 Subjective Easily awakened from sleep. Afebrile. Vital signs stable. Hemoglobin stable at 12.3 after initial slight drop to 11.9 from 13.5 on admission. DEPUTY SHERIFF CHIEF consultation noted. No operative intervention at this time. Hopefully she can go home tomorrow, October 27 Review of Systems 2 Review of Systems: Constitutionalno fever or chills ENTno blurred vision, no double vision, no epistaxis, no sore throat Respiratoryno cough, no wheezing, no shortness of breath Cardiacno palpitations, no chest pain, no syncope Charito nausea, vomiting, diarrhea, melena, hematochezia. Intermittent left lower quadrant discomfort GUno urinary retention, no urinary incontinence, no dysuria, no hematuria Musculoskeletalno joint pain, no muscle tenderness Skinno bruising, no rashes, no pruritus Neurono isolated weakness, no paresthesia, no weakness Psychno depression, no anxiety Physical Exam 2 Physical Exam: General-alert and oriented x3, no fever, no chills HEENT-head atraumatic and normocephalic, pupils equal and reactive to light, extraocular muscles intact Neck-no lymphadenopathy or thyromegaly, trachea midline Chest-clear to auscultation. No rales, wheezing or rhonchi Cardiac-regular rate and rhythm, normal S1 and S2 Abdomen-normal bowel sounds, no hepatosplenomegaly. Mild tenderness left lower quadrant area without rebound or guarding. No palpable masses Extremities-no cyanosis, clubbing, or edema Neuro-cranial nerves II through XII intact, motor and sensory function within normal limits, strength symmetrical, no focal deficits Psych-normal affect, normal mood Results & Data Results & Data Vital Signs (Past 12 Hours) Vital Signs Temp Pulse Pulse Pulse Resp BP BP 10/26/24 07:07 37.1 C 94 H 18 93/51 L 10/26/24 02:22 37.1 C 89 18 104/65 10/26/24 02:01 96 H 18 110/77 10/26/24 01:06 95 H 18 128/78 Pulse Ox O2 Del Method 10/26/24 07:07 95 Room Air 10/26/24 02:22 98 Room Air 10/26/24 02:01 96 Room Air 10/26/24 01:06 100 Room Air Laboratory Results 10/26/24 07:38 10/26/24 07:38 PG Care Time/CCT Total # of Minutes Spent Total Time Spent with Patient: Total time spent is greater than 50% in coordination of care (as documented) at patient's floor/unit and/or counseling patient: Coding Level of Care Code 33574 SUB INP/OBS CARE 2/35MIN Diagnoses Ruptured cyst of left ovary N83.202
--- NOTE | 2024-10-26 14:37 | Discharge Summary ---
Discharge Summary Date of Service October 26, 2024 Principal Dx & Hospital Course #1 = Principal Diagnosis (1) Ruptured cyst of left ovary: CT showed Multilocular 4.4 cm cystic abnormality in the left adnexa. There is a small amount of free fluid in the cul-de-sac. Consider complex left ovarian cyst. MACHINE II ENGRAVER consultation noted. No operative intervention necessary at this time. Pain control measures ordered. Supportive care. Plan The patient is stable for discharge home today, October 26. She will use [place] as needed for pain. Follow-up with outpatient gynecology recommended Admission HPI Per Admitting Provider Patient is a 19-year-old female with no significant past medical history who presents to the hospital with abdominal pain, emesis, and nausea. Patient is from [place] and is here for school. Pain started earlier today after eating eggs and jorge. Patient states that it is diffuse abdominal pain and not located on 1 side though when pressing on it is slightly tender on the left side. Denies ever having issues like this before. States that she thought it was her period cramps. States that her period is regular. She received Toradol in the ED which did not help much. She did receive some morphine which helped slightly but made her nauseous. Denies any cough, fever, chills, shortness of breath, headache, neck pain, or back pain. Discharge Exam General-alert and oriented x3, no fever, no chills HEENT-head atraumatic and normocephalic, pupils equal and reactive to light, extraocular muscles intact Neck-no lymphadenopathy or thyromegaly, trachea midline Chest-clear to auscultation. No rales, wheezing or rhonchi Cardiac-regular rate and rhythm, normal S1 and S2 Abdomen-normal bowel sounds, no hepatosplenomegaly. Mild tenderness left lower quadrant area without rebound or guarding. No palpable masses Extremities-no cyanosis, clubbing, or edema Neuro-cranial nerves II through XII intact, motor and sensory function within normal limits, strength symmetrical, no focal deficits Psych-normal affect, normal mood Discharge Plan Discharge Items Patient Disposition: Home - Self-Care Reason For Visit: OVARIAN CYST Discharge Diagnosis: Ruptured left ovarian cyst Condition on Discharge: Good Activity: Resume your previous activity Non-emergency contact: Primary Care Provider and [employer]ental [employer] Porter Call non-emergency contact if: your symptoms worsen Follow-up/Referrals: [facility] [Primary Care Provider] - Diet: Regular Addtl Attending Provider Instructions: Follow-up with gynecology as directed. Use pain medication every 6 hours if needed. A prescription has been sent to [facility] pharmacy Pending Studies at Discharge: No Stand-Alone Forms: My [facility], Smoking Cessation Medications and DC Order Prescriptions: New hydrocodone-acetaminophen 5-325 mg tablet 1 tab PO Q6H PRN (Reason: pain) Qty: 14 0RF Continued bupropion HCl 150 mg tablet extended release 24 hr 40 mg PO DAILY lisdexamfetamine 40 mg capsule 40 mg PO DAILY Discharge Orders: Discharge Order (Routine); Ordered 10/26/24 Ordered By: Jem Ramírez Admission Data Admit Date/Time: 10/26/24 01:15 Attending Provider: Jem Ramírez Admit Provider: Jeffrey Martinez Primary Care Provider: [facility] Other Providers: Miguelina Eli; Yadi Palmer; Leodan Evans; Merry Palacios; Apolonia Alatorre; Nazia Chaves; Jeanmarie Lucas; Lissette Partida; Sunshine Marshall; Norma Ramirez; Yusuf Solano; Dilia Campos Hospital Stay Data Consultations 10/26/24 00:57 ED Decision to Admit Stat 10/26/24 02:19 Consult Gynecology Routine Diagnostic Imagining Performed 10/25/24 16:18 CT Abd and Pelvis [CT abd pelvis oral and IV con] Stat 10/25/24 21:58 US pelvic complete Stat US transvaginal Stat Pending Results Patient Have Any Pending Studies at Discharge: No Discharge Instructions Given to Patient (Per Discharging Provider) Follow-up with gynecology as directed. Use pain medication every 6 hours if needed. A prescription has been sent to [facility] pharmacy Total Time Total Time Spent Total Time Spent (In Minutes): 50 minutes Coding Level of Care Code 93624 INP/OBS DISCH >30 MIN Diagnoses Ruptured cyst of left ovary N83.202
[2024-10-26 15:24] VITALS: BP 124/79; PULSE 89
== END 2024-10-26 16:30 | disposition home or self-care (01) | DRG 761 ==
LOC: ED 14:52 → 3W 10-26 01:15 → SUATTDRO 10-26 01:15 → INTOOBSV 10-26 01:15 → 3W 10-26 02:01